=== PATIENT | female | born 1945 | race Caucasian/White ===

== ENCOUNTER 2017-12-04 18:57 | Observation (INO) | payer OTHER, BC ==
[~2017-12-04] VITALS: Ht 160 cm; Wt 82.1 kg
[~2017-12-04 18:57] MED LIST: AMOX TR-K CLV1 EAC4 PO; ASPIR-LOW81 MG PO; CALCIUM 600 MG1 EACH PO; DIOVAN HCT 11 TABLET PO; LIPITOR40 MG PO; MULTIVITAMIN1 EAC2 PO; PREVACID30 MG PO
[2017-12-04 19:39] LABS: HEMATOCRIT 41.8 % (36.0-46.0); HEMOGLOBIN 13.6 G/DL (11.9-15.5); MCH 27.4 PG (29.0-34.0); MCHC 32.5 G/DL (30.0-36.0); MCV 84.1 FL (83-99); PLATELET COUNT 324 K/uL (156-360); RBC DIS.WIDTH-CV 13.5 % (11.8-14.6); RBC DIS.WIDTH-SD 41.7 % (39-53); RED BLOOD COUNT 4.97 M/uL (3.80-5.20); WHITE BLOOD COUNT 7.3 K/uL (4.1-10.2)
[2017-12-04 19:48] LABS: CHLORIDE 105 mEq/L (99-109); POTASSIUM 3.8 mEq/L (3.7-5.4); SODIUM 140 mEq/L (136-147)
[2017-12-04 19:50] LABS: GLUCOSE 114 mg/dL (70-99)
[2017-12-04 19:53] LABS: CREATININE 1.3 mg/dL (0.6-1.3); GFR ESTIMATE (CALCULATED) 43 mL/min/
[2017-12-04 19:54] LABS: UREA NITROGEN (BUN) 23 mg/dL (9-23)
[2017-12-04 19:59] LABS: TROP-I INTERPRETATION NEGATIVE; TROPONIN-I < 0.01 ng/mL (0.0-0.30)
[2017-12-04] MEDS ORDERED: DIOVAN HCT 31 TABLET PO (22:12)
[2017-12-04] MEDS ORDERED: AUGMENTIN875 MG PO (22:13)
[2017-12-04] MEDS ORDERED: OCEAN NASAL 0.645 ML BOTH NARES (22:14)
[2017-12-04] MEDS ORDERED: ALEVE220 MG PO (22:14)
[2017-12-04 23:14] VITALS: BP 136/69
[2017-12-05 04:08] VITALS: BP 119/67
[2017-12-05 08:50] VITALS: BP 119/67
[2017-12-05 08:51] LABS: TROP-I INTERPRETATION NEGATIVE; TROPONIN-I < 0.01 ng/mL (0.0-0.30)
[2017-12-05 13:30] LABS: TROP-I INTERPRETATION NEGATIVE; TROPONIN-I < 0.01 ng/mL (0.0-0.30)
[2017-12-05 16:40] VITALS: BP 133/75
== END 2017-12-05 21:30 | disposition home or self-care (01) ==
LOC: EME 18:57 → EDOF 22:06 → ENRESERV 22:08 → 5WEST 22:57
PROVIDERS: Hospitalist; Physician Assistant Medical
DX: R07.89 Other chest pain (principal); I12.9 Hypertensive chronic kidney disease with stage 1 through stage 4 chronic kidney disease, or unspecified chronic kidney disease; N18.9 Chronic kidney disease, unspecified; Z82.49 Family history of ischemic heart disease and other diseases of the circulatory system; E78.5 Hyperlipidemia, unspecified; K21.9 Gastro-esophageal reflux disease without esophagitis; J01.01 Acute recurrent maxillary sinusitis; R07.9 Chest pain, unspecified; R06.00 Dyspnea, unspecified; R61 Generalized hyperhidrosis; G89.29 Other chronic pain; M54.5 Low back pain; Z82.3 Family history of stroke; Z82.5 Family history of asthma and other chronic lower respiratory diseases; Z80.0 Family history of malignant neoplasm of digestive organs; Z88.2 Allergy status to sulfonamides; Z79.82 Long term (current) use of aspirin
CPT/HCPCS: 71046; 80048; 84484; 85027; 93005; G0378; J1644